=== PATIENT | male | born 1965 | race Caucasian/White ===

== ENCOUNTER 2017-10-30 05:45 | Day surgery (SDC) | payer MEDICARE, OTHER ==
[~2017-10-30] VITALS: Ht 188 cm; Wt 125.0 kg
[~2017-10-30 05:45] MED LIST: ACET120S PR; ACET325 PO; ACET500 PO; ALLO100 PO; ALLO300 PO; AMIO200 PO; AMIT10 PO; AMIT25 PO; ASPI325 PO; Alprazolam2 MG PO; BENADRYL25 MG PO; BISA10S PR; Bystolic10 MG PO; CALCAVITD PO; CHOL10002 PO; CVS DISPOSABLE399 ML PR; CYAN1000 PO; Calci-Chew500 MG; Ceftriaxone2 G1 IV; Cordarone200 MG PO; Cymbalta30 MG PO; DIAZ5 PO; DILT120 PO; DIPH50 PO; DOCU100 PO; DULO30 PO; ELIQUIS5 MG PO; FENT100TP TOP; FERR325 PO; FOLI1 PO; FURO20 PO; FURO40 PO; HYDACE5 PO; HYDMOR2 PO; IBUP800 PO; IRON159 MG PO; KINERET SC; LAVAP17G PO; LEVSOD100 PO; LEVSOD125 PO; LISI20 PO; LORA1 PO; MAGCHL64ER PO; METHOTREXA25 MG/1 M6 IM; METO25 PO; METO50 PO; METPRE4DP PO; METTREX2.5 PO; MITIGARE0.6 MG PO; Micro-K10 MEQ; Milk Of Ma400 MG/5 M PO; NARCAN4 MG; NEBI10 PO; NUCYNTA ER100 MG PO; NUCYNTA ER50 MG PO; NYST100TC; NYSTRITC TOP; Nephro-Vite RX1 EA PO; Nortriptyline H50 MG PO; OMEP20ER PO; OMEPRAZOLE MAGN20 MG PO; ONDA8 SL; OPANA ER40 MG PO; OPANA PO; OXYC10ER PO; OXYC30 PO; OXYC30ER PO; OXYM.05NI; OXYMORPHONE HCL40 MG PO; Oxycodone HCl20 M1 PO; PANT40 PO; POTCHL10ER PO; PRAV20 PO; PRED10 PO; PRED20 PO; PRED5 PO; PROB500 PO; Pravastatin Sod40 MG PO; Prednisone2.5 MG PO; Prednisone20 MG PO; Prilosec2.5 MG PO; Prinivil10 MG PO; SACC250C PO; SPIR25 PO; SULF500A PO; Synthroid175 MCG PO; VALIUM; Ventolin5 MG/1 ML INH; WARF5 PO; WARF6 PO; WARF7.5 PO; [UNRECOGNIZED DRUG - OTHER]
== END 2017-10-30 22:35 | disposition home or self-care (01) ==
LOC: MHTC 05:45
PROC: 5A2204Z Restoration of Cardiac Rhythm, Single (ICD-10-PCS; principal; 2017-10-30)
DX: I48.1 Persistent atrial fibrillation (principal); G47.30 Sleep apnea, unspecified; E05.90 Thyrotoxicosis, unspecified without thyrotoxic crisis or storm; F17.220 Nicotine dependence, chewing tobacco, uncomplicated; Z79.01 Long term (current) use of anticoagulants; K21.9 Gastro-esophageal reflux disease without esophagitis; F41.9 Anxiety disorder, unspecified
CPT/HCPCS: 92960; 93005; 93010; 99152; 99153; J2250; J2310; J3010; J7030

== ENCOUNTER 2017-11-27 06:57 | Day surgery (SDC) | payer MEDICARE, OTHER ==
[~2017-11-27] VITALS: Ht 188 cm; Wt 130.6 kg
[~2017-11-27 06:57] MED LIST changes: +DISO100ER PO; +DRON400T PO; +ELIQUIS5 M1 PO
== END 2017-11-27 22:42 | disposition home or self-care (01) ==
LOC: ORSCMMR 06:57 → ORD 08:00 → ORSCMMR 22:42
PROVIDERS: Internal Medicine Gastroenterology
PROC: 0DBN8ZX Excision of Sigmoid Colon, Via Natural or Artificial Opening Endoscopic, Diagnostic (ICD-10-PCS; principal; 2017-11-27 08:00)
DX: R19.5 Other fecal abnormalities (principal); K63.5 Polyp of colon; I48.0 Paroxysmal atrial fibrillation; E78.00 Pure hypercholesterolemia, unspecified; E66.9 Obesity, unspecified; Z68.37 Body mass index [BMI] 37.0-37.9, adult; Z79.01 Long term (current) use of anticoagulants; Z79.82 Long term (current) use of aspirin; Z79.899 Other long term (current) drug therapy
CPT/HCPCS: 88305; J7120

== ENCOUNTER 2017-12-31 09:00 | Day surgery (SDC) | payer MEDICARE, OTHER ==
[~2017-12-31] VITALS: Ht 182.9 cm; Wt 130.6 kg
[~2017-12-31 09:00] MED LIST changes: +ASPI325EC PO; +Allopurinol100 MG PO; +Hair, Skin & N1 EACH PO; +METHOTREXA25 MG/1 M7 INJ; +MIRALAX17 GM PO; +ONDA8 PO; +POTCHL20ER PO; +Pravachol40 MG PO; +Prilosec Otc20 MG PO; +TOPROL XL200 MG PO
== END 2017-12-31 11:03 | disposition home or self-care (01) ==
LOC: ORSCMMR 09:00 → ORD 10:30 → ORSCMMR 11:03
PROVIDERS: Internal Medicine Gastroenterology
PROC: 0DBN8ZX Excision of Sigmoid Colon, Via Natural or Artificial Opening Endoscopic, Diagnostic (ICD-10-PCS; principal; 2017-12-31 10:30)
DX: R19.5 Other fecal abnormalities (principal); K57.30 Diverticulosis of large intestine without perforation or abscess without bleeding; K63.5 Polyp of colon; I48.0 Paroxysmal atrial fibrillation; K21.9 Gastro-esophageal reflux disease without esophagitis; E78.00 Pure hypercholesterolemia, unspecified; Z79.01 Long term (current) use of anticoagulants; Z79.82 Long term (current) use of aspirin; Z79.899 Other long term (current) drug therapy
CPT/HCPCS: 88305; J2250; J7120

== ENCOUNTER 2023-02-21 02:10 | Day surgery (SDC) | payer MEDICARE, OTHER | END 2023-02-21 22:36 | disposition home or self-care (01) | LOC: WOUND 02:10 | DX: S90.932D Unspecified superficial injury of left great toe, subsequent encounter (principal); X58.XXXD Exposure to other specified factors, subsequent encounter; M1A.09X1 Idiopathic chronic gout, multiple sites, with tophus (tophi); I48.91 Unspecified atrial fibrillation; G47.30 Sleep apnea, unspecified; Z88.8 Allergy status to other drugs, medicaments and biological substances | CPT/HCPCS: G0463 ==

== ENCOUNTER 2023-02-26 01:57 | Day surgery (SDC) | payer MEDICARE, OTHER | END 2023-02-26 22:37 | disposition home or self-care (01) | LOC: WOUND 01:57 | DX: S90.422A Blister (nonthermal), left great toe, initial encounter (principal); X58.XXXD Exposure to other specified factors, subsequent encounter; M1A.09X1 Idiopathic chronic gout, multiple sites, with tophus (tophi); L97.521 Non-pressure chronic ulcer of other part of left foot limited to breakdown of skin | CPT/HCPCS: G0463 ==

== ENCOUNTER 2023-03-05 02:04 | Day surgery (SDC) | payer MEDICARE, OTHER | END 2023-03-05 22:53 | disposition home or self-care (01) | LOC: WOUND 02:04 | DX: L89.892 Pressure ulcer of other site, stage 2 (principal); S90.932D Unspecified superficial injury of left great toe, subsequent encounter; X58.XXXD Exposure to other specified factors, subsequent encounter; M1A.09X1 Idiopathic chronic gout, multiple sites, with tophus (tophi) | CPT/HCPCS: G0463 ==

== ENCOUNTER 2023-03-19 01:42 | Day surgery (SDC) | payer MEDICARE, OTHER | END 2023-03-19 22:51 | disposition home or self-care (01) | LOC: WOUND 01:42 | DX: L89.892 Pressure ulcer of other site, stage 2 (principal); S90.932D Unspecified superficial injury of left great toe, subsequent encounter; X58.XXXD Exposure to other specified factors, subsequent encounter; M1A.09X1 Idiopathic chronic gout, multiple sites, with tophus (tophi) | CPT/HCPCS: G0463 ==

== ENCOUNTER 2023-03-28 00:55 | Day surgery (SDC) | payer MEDICARE, OTHER | END 2023-03-28 22:58 | disposition home or self-care (01) | LOC: WOUND 00:55 | DX: L89.892 Pressure ulcer of other site, stage 2 (principal); M1A.09X1 Idiopathic chronic gout, multiple sites, with tophus (tophi) | CPT/HCPCS: G0463 ==

== ENCOUNTER 2023-04-09 01:46 | Day surgery (SDC) | payer MEDICARE, OTHER | END 2023-04-09 22:53 | disposition home or self-care (01) | LOC: WOUND 01:46 | DX: L89.892 Pressure ulcer of other site, stage 2 (principal); S90.932D Unspecified superficial injury of left great toe, subsequent encounter; M1A.09X1 Idiopathic chronic gout, multiple sites, with tophus (tophi) | CPT/HCPCS: G0463 ==

== ENCOUNTER 2023-04-23 00:16 | Day surgery (SDC) | payer MEDICARE, OTHER | END 2023-04-23 22:50 | disposition home or self-care (01) | LOC: WOUND 00:16 | DX: S90.932D Unspecified superficial injury of left great toe, subsequent encounter (principal); M1A.09X1 Idiopathic chronic gout, multiple sites, with tophus (tophi) | CPT/HCPCS: G0463 ==

== ENCOUNTER 2023-05-05 16:56 | Emergency (ER) | payer MEDICARE, OTHER ==
[~2023-05-05] VITALS: Ht 185.4 cm; Wt 136.1 kg
[2023-05-05 17:25] LABS: Base Excess Venous -1.8 mmol/L; Bicarbonate Venous 23.5 mmol/L (24.0-30.0); PCO2 Venous 32.3 mmHg (38-42); pH Blood Venous 7.45 (7.34-7.37)
[2023-05-05 17:48] LABS: BASOPHILS ABSOLUTE AUTO 0.04 K/mm3 (0.00-0.23); BASOPHILS PERCENT AUTO 1 % (0-2); EOSINOPHILS PERCENT AUTO 0 % (0-6); Hematocrit 36.4 % (37.0-53.0); Hemoglobin 12.6 g/dL (13.5-17.5); IMMATURE GRAN ABSOLUTE AUTO 0.02 K/mm3 (0.00-0.10); IMMATURE GRAN PERCENT AUTO 0 % (0-1); LYMPHOCYTES ABSOLUTE AUTO 1.45 K/mm3 (0.84-5.20); LYMPHOCYTES PERCENT AUTO 21 % (21-46); MONOCYTES PERCENT AUTO 7 % (4-13); Mean Corpuscular HGB 30.3 pg (26.0-34.0); Mean Corpuscular HGB Conc 34.6 g/dL (31.5-36.5); Mean Corpuscular Volume 88 fL (80-100); Mean Platelet Volume 9.6 fL (9.1-12.4); NEUTROPHILS ABSOLUTE AUTO 4.83 K/mm3 (1.96-9.15); NEUTROPHILS PERCENT AUTO 71 % (41-73); Platelet Count 184 K/mm3 (150-400); RDW Coefficient Variation 12.5 % (11.7-14.2); Red Blood Cell Count 4.16 M/mm3 (4.30-5.90); White Blood Cell Count 6.84 K/mm3 (4.00-11.30)
[2023-05-05 18:05] LABS: Albumin, Blood 3.9 g/dL (3.4-5.0); Bilirubin, Total 0.4 mg/dL (0.1-1.0); Bun/Creatinine Ratio 22.7 (12.0-20.0); Calcium, Blood 8.8 mg/dL (8.5-10.1); Creatinine, Blood 0.79 mg/dL (0.60-1.20); Globulin, Blood 3.8 g/dL (2.2-4.0); Potassium, Blood 3.5 mmol/L (3.5-5.5); Total Protein, Blood 7.7 g/dL (6.4-8.2)
[2023-05-05 18:19] LABS: Salicylate <1.7 mg/dL (2.8-20.0)
[2023-05-05 18:27] LABS: Acetaminophen, Random <2.0 ug/mL (10.0-30.0)
[2023-05-05 19:00] VITALS: BP 156/82
== END 2023-05-05 19:19 | disposition home or self-care (01) ==
LOC: ER 16:56
PROVIDERS: Emergency Medicine
DX: T40.2X1A Poisoning by other opioids, accidental (unintentional), initial encounter (principal); G89.29 Other chronic pain; Z88.8 Allergy status to other drugs, medicaments and biological substances; Z79.899 Other long term (current) drug therapy; Z79.82 Long term (current) use of aspirin; F17.220 Nicotine dependence, chewing tobacco, uncomplicated; M10.9 Gout, unspecified; E11.22 Type 2 diabetes mellitus with diabetic chronic kidney disease; N18.9 Chronic kidney disease, unspecified; E03.9 Hypothyroidism, unspecified; E78.5 Hyperlipidemia, unspecified; E66.9 Obesity, unspecified
CPT/HCPCS: 80053; 82803; 85025; 93005; 93010; 99284-25; A9270; G0480

== ENCOUNTER 2023-05-14 01:08 | Day surgery (SDC) | payer MEDICARE, OTHER | END 2023-05-15 22:55 | disposition home or self-care (01) | LOC: WOUND 01:08 | DX: L89.892 Pressure ulcer of other site, stage 2 (principal); S90.932D Unspecified superficial injury of left great toe, subsequent encounter; X58.XXXD Exposure to other specified factors, subsequent encounter; M1A.09X1 Idiopathic chronic gout, multiple sites, with tophus (tophi) | CPT/HCPCS: G0463 ==

== ENCOUNTER 2023-06-18 02:26 | Day surgery (SDC) | payer MEDICARE, OTHER | END 2023-06-18 22:54 | disposition home or self-care (01) | LOC: WOUND 02:26 | DX: L89.622 Pressure ulcer of left heel, stage 2 (principal); S90.932D Unspecified superficial injury of left great toe, subsequent encounter; M1A.09X1 Idiopathic chronic gout, multiple sites, with tophus (tophi) | CPT/HCPCS: G0463 ==

== ENCOUNTER 2023-07-02 04:26 | Day surgery (SDC) | payer MEDICARE, OTHER | END 2023-07-02 22:57 | disposition home or self-care (01) | LOC: WOUND 04:26 | DX: L89.622 Pressure ulcer of left heel, stage 2 (principal); S90.932D Unspecified superficial injury of left great toe, subsequent encounter; M1A.09X1 Idiopathic chronic gout, multiple sites, with tophus (tophi) | CPT/HCPCS: G0463 ==

== ENCOUNTER 2023-07-25 02:23 | Day surgery (SDC) | payer MEDICARE, OTHER | END 2023-07-25 22:40 | disposition home or self-care (01) | LOC: WOUND 02:23 | DX: L89.892 Pressure ulcer of other site, stage 2 (principal); S90.932D Unspecified superficial injury of left great toe, subsequent encounter; X58.XXXD Exposure to other specified factors, subsequent encounter; M1A.09X1 Idiopathic chronic gout, multiple sites, with tophus (tophi) | CPT/HCPCS: G0463 ==

== ENCOUNTER 2023-08-13 03:23 | Day surgery (SDC) | payer MEDICARE, OTHER | END 2023-08-13 22:51 | disposition home or self-care (01) | LOC: WOUND 03:23 | DX: S90.932D Unspecified superficial injury of left great toe, subsequent encounter (principal); M1A.09X1 Idiopathic chronic gout, multiple sites, with tophus (tophi); X58.XXXD Exposure to other specified factors, subsequent encounter | CPT/HCPCS: G0463 ==

== ENCOUNTER 2024-05-22 02:03 | Day surgery (SDC) | payer MEDICARE, OTHER ==
[2024-05-22] MEDS ORDERED: Lidocaine HCl 4% Cream 5 GM ONE (08:08)
== END 2024-05-22 23:00 | disposition home or self-care (01) ==
LOC: WOUND 02:03
DX: L97.412 Non-pressure chronic ulcer of right heel and midfoot with fat layer exposed (principal); L97.422 Non-pressure chronic ulcer of left heel and midfoot with fat layer exposed; M19.90 Unspecified osteoarthritis, unspecified site; M10.9 Gout, unspecified; Z79.899 Other long term (current) drug therapy; Z88.8 Allergy status to other drugs, medicaments and biological substances
CPT/HCPCS: A9270; G0463

== ENCOUNTER 2024-05-28 03:02 | Day surgery (SDC) | payer MEDICARE, OTHER ==
[2024-05-28] MEDS ORDERED: Lidocaine HCl 4% Cream 5 GM ONE (08:36)
== END 2024-05-28 23:00 | disposition home or self-care (01) ==
LOC: WOUND 03:02
DX: L97.412 Non-pressure chronic ulcer of right heel and midfoot with fat layer exposed (principal); L97.422 Non-pressure chronic ulcer of left heel and midfoot with fat layer exposed
CPT/HCPCS: A9270

== ENCOUNTER 2024-06-04 03:19 | Day surgery (SDC) | payer MEDICARE, OTHER ==
[2024-06-04] MEDS ORDERED: Lidocaine HCl 4% Cream 5 GM ONE (07:59)
== END 2024-06-04 23:00 | disposition home or self-care (01) ==
LOC: WOUND 03:19
DX: L97.512 Non-pressure chronic ulcer of other part of right foot with fat layer exposed (principal); L97.522 Non-pressure chronic ulcer of other part of left foot with fat layer exposed
CPT/HCPCS: A9270; G0463

== ENCOUNTER 2024-06-25 01:15 | Day surgery (SDC) | payer MEDICARE, OTHER ==
[2024-06-25] MEDS ORDERED: Lidocaine HCl 4% Cream 5 GM ONE (07:58)
== END 2024-06-25 23:00 | disposition home or self-care (01) ==
LOC: WOUND 01:15
DX: L97.512 Non-pressure chronic ulcer of other part of right foot with fat layer exposed (principal); L97.522 Non-pressure chronic ulcer of other part of left foot with fat layer exposed
CPT/HCPCS: A9270

== ENCOUNTER 2024-06-30 04:45 | Day surgery (SDC) | payer MEDICARE, OTHER ==
[2024-06-30] MEDS ORDERED: Lidocaine HCl 4% Cream 5 GM ONE (08:09)
== END 2024-06-30 23:50 | disposition home or self-care (01) ==
LOC: WOUND 04:45
DX: L97.422 Non-pressure chronic ulcer of left heel and midfoot with fat layer exposed (principal); L97.412 Non-pressure chronic ulcer of right heel and midfoot with fat layer exposed; M10.9 Gout, unspecified
CPT/HCPCS: A9270

== ENCOUNTER 2024-07-07 02:57 | Day surgery (SDC) | payer MEDICARE, OTHER ==
[2024-07-07] MEDS ORDERED: Lidocaine HCl 4% Cream 5 GM ONE (08:09)
== END 2024-07-07 23:00 | disposition home or self-care (01) ==
LOC: WOUND 02:57
DX: L97.422 Non-pressure chronic ulcer of left heel and midfoot with fat layer exposed (principal); L97.412 Non-pressure chronic ulcer of right heel and midfoot with fat layer exposed; G62.9 Polyneuropathy, unspecified; M10.9 Gout, unspecified; Z79.899 Other long term (current) drug therapy
CPT/HCPCS: A9270

== ENCOUNTER 2024-07-21 02:58 | Day surgery (SDC) | payer MEDICARE, OTHER ==
[2024-07-21] MEDS ORDERED: Lidocaine HCl 4% Cream 5 GM ONE (07:50)
== END 2024-07-21 23:00 | disposition home or self-care (01) ==
LOC: WOUND 02:58
DX: L97.412 Non-pressure chronic ulcer of right heel and midfoot with fat layer exposed (principal); L97.422 Non-pressure chronic ulcer of left heel and midfoot with fat layer exposed; M10.9 Gout, unspecified
CPT/HCPCS: A9270

== ENCOUNTER 2024-07-28 03:03 | Day surgery (SDC) | payer MEDICARE, OTHER ==
[2024-07-28] MEDS ORDERED: Lidocaine HCl 4% Cream 5 GM ONE (07:54)
== END 2024-07-28 23:00 | disposition home or self-care (01) ==
LOC: WOUND 03:03
DX: L97.412 Non-pressure chronic ulcer of right heel and midfoot with fat layer exposed (principal); L97.422 Non-pressure chronic ulcer of left heel and midfoot with fat layer exposed; M10.9 Gout, unspecified; Z79.899 Other long term (current) drug therapy; L97.512 Non-pressure chronic ulcer of other part of right foot with fat layer exposed; L97.522 Non-pressure chronic ulcer of other part of left foot with fat layer exposed; M20.12 Hallux valgus (acquired), left foot; M20.11 Hallux valgus (acquired), right foot; M24.675 Ankylosis, left foot; M24.674 Ankylosis, right foot; Z96.661 Presence of right artificial ankle joint; Z96.662 Presence of left artificial ankle joint; M19.172 Post-traumatic osteoarthritis, left ankle and foot
CPT/HCPCS: 73630; A6196; A9270; G0463

== ENCOUNTER 2024-08-04 04:16 | Day surgery (SDC) | payer MEDICARE, OTHER ==
[2024-08-04] MEDS ORDERED: Lidocaine HCl 4% Cream 5 GM ONE (07:59)
== END 2024-08-04 23:00 | disposition home or self-care (01) ==
LOC: WOUND 04:16
DX: L97.412 Non-pressure chronic ulcer of right heel and midfoot with fat layer exposed (principal); L97.422 Non-pressure chronic ulcer of left heel and midfoot with fat layer exposed
CPT/HCPCS: A6196; A9270

== ENCOUNTER 2024-08-06 06:08 | Day surgery (SDC) | payer MEDICARE, OTHER | END 2024-08-06 22:51 | disposition home or self-care (01) | LOC: WOUND 06:08 | DX: L97.422 Non-pressure chronic ulcer of left heel and midfoot with fat layer exposed (principal); L97.412 Non-pressure chronic ulcer of right heel and midfoot with fat layer exposed; M10.9 Gout, unspecified; Z79.899 Other long term (current) drug therapy ==

== ENCOUNTER 2024-08-08 07:17 | Day surgery (SDC) | payer MEDICARE, OTHER | END 2024-08-08 23:00 | disposition home or self-care (01) | LOC: WOUND 07:17 | DX: L97.412 Non-pressure chronic ulcer of right heel and midfoot with fat layer exposed (principal); L97.422 Non-pressure chronic ulcer of left heel and midfoot with fat layer exposed; G62.9 Polyneuropathy, unspecified; M10.9 Gout, unspecified ==

== ENCOUNTER 2024-08-11 04:12 | Day surgery (SDC) | payer MEDICARE, OTHER ==
[2024-08-11] MEDS ORDERED: Lidocaine HCl 4% Cream 5 GM ONE (13:01)
== END 2024-08-11 23:00 | disposition home or self-care (01) ==
LOC: WOUND 04:12
DX: L97.412 Non-pressure chronic ulcer of right heel and midfoot with fat layer exposed (principal); L97.422 Non-pressure chronic ulcer of left heel and midfoot with fat layer exposed; G62.9 Polyneuropathy, unspecified; M10.9 Gout, unspecified; Z79.899 Other long term (current) drug therapy
CPT/HCPCS: A9270

== ENCOUNTER 2024-08-18 06:10 | Day surgery (SDC) | payer MEDICARE, OTHER ==
[2024-08-18] MEDS ORDERED: Lidocaine HCl 4% Cream 5 GM ONE (08:09)
== END 2024-08-18 23:00 | disposition home or self-care (01) ==
LOC: WOUND 06:10
DX: L97.412 Non-pressure chronic ulcer of right heel and midfoot with fat layer exposed (principal); L97.422 Non-pressure chronic ulcer of left heel and midfoot with fat layer exposed
CPT/HCPCS: A9270

== ENCOUNTER 2024-08-25 06:07 | Day surgery (SDC) | payer MEDICARE, OTHER ==
[2024-08-25] MEDS ORDERED: Lidocaine HCl 4% Cream 5 GM ONE (08:05)
== END 2024-08-25 23:00 | disposition home or self-care (01) ==
LOC: WOUND 06:07
DX: L97.422 Non-pressure chronic ulcer of left heel and midfoot with fat layer exposed (principal); L97.412 Non-pressure chronic ulcer of right heel and midfoot with fat layer exposed; G62.9 Polyneuropathy, unspecified; M10.9 Gout, unspecified; Z79.899 Other long term (current) drug therapy
CPT/HCPCS: A9270

== ENCOUNTER 2024-09-01 00:56 | Day surgery (SDC) | payer MEDICARE, OTHER ==
[2024-09-01] MEDS ORDERED: Lidocaine HCl 4% Cream 5 GM ONE (09:16)
== END 2024-09-01 23:00 | disposition home or self-care (01) ==
LOC: WOUND 00:56
DX: L97.412 Non-pressure chronic ulcer of right heel and midfoot with fat layer exposed (principal); L97.422 Non-pressure chronic ulcer of left heel and midfoot with fat layer exposed
CPT/HCPCS: A9270

== ENCOUNTER 2024-09-15 00:14 | Day surgery (SDC) | payer MEDICARE, OTHER ==
[2024-09-15] MEDS ORDERED: Lidocaine HCl 4% Cream 5 GM ONE (08:37)
== END 2024-09-15 23:00 | disposition home or self-care (01) ==
LOC: WOUND 00:14
DX: L97.412 Non-pressure chronic ulcer of right heel and midfoot with fat layer exposed (principal); L97.422 Non-pressure chronic ulcer of left heel and midfoot with fat layer exposed; G62.9 Polyneuropathy, unspecified; M10.9 Gout, unspecified; Z79.899 Other long term (current) drug therapy
CPT/HCPCS: A9270

== ENCOUNTER 2024-09-22 01:16 | Day surgery (SDC) | payer MEDICARE, OTHER ==
[2024-09-22] MEDS ORDERED: Lidocaine HCl 4% Cream 5 GM ONE (08:08)
== END 2024-09-22 23:00 | disposition home or self-care (01) ==
LOC: WOUND 01:16
DX: L97.422 Non-pressure chronic ulcer of left heel and midfoot with fat layer exposed (principal); L97.412 Non-pressure chronic ulcer of right heel and midfoot with fat layer exposed; G62.9 Polyneuropathy, unspecified; M10.9 Gout, unspecified; Z79.899 Other long term (current) drug therapy
CPT/HCPCS: A9270

== ENCOUNTER 2024-09-29 02:15 | Day surgery (SDC) | payer MEDICARE, OTHER | END 2024-09-29 23:00 | disposition home or self-care (01) | LOC: WOUND 02:15 | DX: L97.412 Non-pressure chronic ulcer of right heel and midfoot with fat layer exposed (principal); L97.422 Non-pressure chronic ulcer of left heel and midfoot with fat layer exposed ==

== ENCOUNTER 2024-10-06 01:41 | Day surgery (SDC) | payer MEDICARE, OTHER ==
[2024-10-06] MEDS ORDERED: Lidocaine HCl 4% Cream 5 GM ONE (08:15)
== END 2024-10-06 23:18 | disposition home or self-care (01) ==
LOC: WOUND 01:41
DX: L97.412 Non-pressure chronic ulcer of right heel and midfoot with fat layer exposed (principal); L97.422 Non-pressure chronic ulcer of left heel and midfoot with fat layer exposed
CPT/HCPCS: A9270

== ENCOUNTER 2024-10-13 02:19 | Day surgery (SDC) | payer MEDICARE, OTHER ==
[2024-10-13] MEDS ORDERED: Lidocaine HCl 4% Cream 5 GM ONE (08:12)
== END 2024-10-13 22:48 | disposition home or self-care (01) ==
LOC: WOUND 02:19
DX: L97.422 Non-pressure chronic ulcer of left heel and midfoot with fat layer exposed (principal); L97.412 Non-pressure chronic ulcer of right heel and midfoot with fat layer exposed
CPT/HCPCS: A6196; A9270

== ENCOUNTER 2024-10-20 00:23 | Day surgery (SDC) | payer MEDICARE, OTHER ==
[2024-10-20] MEDS ORDERED: Lidocaine HCl 4% Cream 5 GM ONE (08:04)
== END 2024-10-20 23:33 | disposition home or self-care (01) ==
LOC: WOUND 00:23
DX: L97.512 Non-pressure chronic ulcer of other part of right foot with fat layer exposed (principal); L97.522 Non-pressure chronic ulcer of other part of left foot with fat layer exposed
CPT/HCPCS: A6196; A9270

== ENCOUNTER 2024-10-27 01:11 | Day surgery (SDC) | payer MEDICARE, OTHER ==
[2024-10-27] MEDS ORDERED: Lidocaine HCl 4% Cream 5 GM ONE (07:56)
== END 2024-10-27 23:00 | disposition home or self-care (01) ==
LOC: WOUND 01:11
DX: L97.412 Non-pressure chronic ulcer of right heel and midfoot with fat layer exposed (principal); L97.422 Non-pressure chronic ulcer of left heel and midfoot with fat layer exposed
CPT/HCPCS: A6196; A9270

== ENCOUNTER 2024-11-03 01:32 | Day surgery (SDC) | payer MEDICARE, OTHER ==
[2024-11-03] MEDS ORDERED: Lidocaine HCl 4% Cream 5 GM ONE (08:08)
== END 2024-11-03 23:00 | disposition home or self-care (01) ==
LOC: WOUND 01:32
DX: L97.412 Non-pressure chronic ulcer of right heel and midfoot with fat layer exposed (principal); L97.422 Non-pressure chronic ulcer of left heel and midfoot with fat layer exposed
CPT/HCPCS: A6196; A9270; G0463

== ENCOUNTER → 2024-11-10 | Day surgery (SDC) | payer MEDICARE, OTHER | LOC: WOUND 13:17 | DX: L97.412 Non-pressure chronic ulcer of right heel and midfoot with fat layer exposed (principal); L97.422 Non-pressure chronic ulcer of left heel and midfoot with fat layer exposed; M10.9 Gout, unspecified | CPT/HCPCS: A6196; G0463 ==

== ENCOUNTER 2024-11-17 08:14 | Day surgery (SDC) | payer MEDICARE, OTHER | END 2024-11-17 23:00 | disposition home or self-care (01) | LOC: WOUND 08:14 | DX: L97.412 Non-pressure chronic ulcer of right heel and midfoot with fat layer exposed (principal); L97.422 Non-pressure chronic ulcer of left heel and midfoot with fat layer exposed | CPT/HCPCS: A6196; G0463 ==

== ENCOUNTER 2024-11-24 05:44 | Day surgery (SDC) | payer MEDICARE, OTHER ==
[2024-11-24] MEDS ORDERED: Lidocaine HCl 4% Cream 5 GM ONE (07:53)
== END 2024-11-24 23:00 | disposition home or self-care (01) ==
LOC: WOUND 05:44
DX: L97.412 Non-pressure chronic ulcer of right heel and midfoot with fat layer exposed (principal); L97.422 Non-pressure chronic ulcer of left heel and midfoot with fat layer exposed
CPT/HCPCS: A6196; A9270

== ENCOUNTER 2024-12-01 03:27 | Day surgery (SDC) | payer MEDICARE, OTHER ==
[2024-12-01] MEDS ORDERED: Lidocaine HCl 4% Cream 5 GM ONE (07:48)
== END 2024-12-01 23:10 | disposition home or self-care (01) ==
LOC: WOUND 03:27
DX: L97.412 Non-pressure chronic ulcer of right heel and midfoot with fat layer exposed (principal); L97.422 Non-pressure chronic ulcer of left heel and midfoot with fat layer exposed
CPT/HCPCS: A6196; A9270; G0463

== ENCOUNTER 2024-12-08 00:56 | Day surgery (SDC) | payer MEDICARE, OTHER ==
[2024-12-08] MEDS ORDERED: Lidocaine HCl 4% Cream 5 GM ONE (07:55)
== END 2024-12-08 23:15 | disposition home or self-care (01) ==
LOC: WOUND 00:56
DX: L97.412 Non-pressure chronic ulcer of right heel and midfoot with fat layer exposed (principal); L97.422 Non-pressure chronic ulcer of left heel and midfoot with fat layer exposed
CPT/HCPCS: A6196; A9270

== ENCOUNTER 2024-12-29 03:14 | Day surgery (SDC) | payer MEDICARE, OTHER ==
[2024-12-29] MEDS ORDERED: Lidocaine HCl 4% Cream 5 GM ONE (07:40)
== END 2024-12-29 23:42 | disposition home or self-care (01) ==
LOC: WOUND 03:14
DX: L97.512 Non-pressure chronic ulcer of other part of right foot with fat layer exposed (principal); L97.522 Non-pressure chronic ulcer of other part of left foot with fat layer exposed
CPT/HCPCS: A9270; G0463

== ENCOUNTER 2025-01-19 08:00 | Day surgery (SDC) | payer MEDICARE, OTHER | END 2025-01-19 23:00 | disposition home or self-care (01) | LOC: WOUND 08:00 | DX: L97.412 Non-pressure chronic ulcer of right heel and midfoot with fat layer exposed (principal); L97.422 Non-pressure chronic ulcer of left heel and midfoot with fat layer exposed; Z88.8 Allergy status to other drugs, medicaments and biological substances ==

== ENCOUNTER 2025-02-02 00:31 | Day surgery (SDC) | payer MEDICARE, OTHER | END 2025-02-02 23:00 | disposition home or self-care (01) | LOC: WOUND 00:31 | DX: L97.412 Non-pressure chronic ulcer of right heel and midfoot with fat layer exposed (principal); L97.422 Non-pressure chronic ulcer of left heel and midfoot with fat layer exposed | CPT/HCPCS: G0463 ==

== ENCOUNTER 2025-02-16 00:38 | Day surgery (SDC) | payer MEDICARE, OTHER ==
[2025-02-16] MEDS ORDERED: Lidocaine HCl 4% Cream 5 GM ONE (07:57)
== END 2025-02-16 23:00 | disposition home or self-care (01) ==
LOC: WOUND 00:38
DX: L97.412 Non-pressure chronic ulcer of right heel and midfoot with fat layer exposed (principal); L97.422 Non-pressure chronic ulcer of left heel and midfoot with fat layer exposed
CPT/HCPCS: A6196; A9270

== ENCOUNTER 2025-03-02 00:27 | Day surgery (SDC) | payer MEDICARE, OTHER ==
[2025-03-02] MEDS ORDERED: Lidocaine HCl 4% Cream 5 GM ONE (07:44)
== END 2025-03-02 23:00 | disposition home or self-care (01) ==
LOC: WOUND 00:27
DX: L97.422 Non-pressure chronic ulcer of left heel and midfoot with fat layer exposed (principal); L97.412 Non-pressure chronic ulcer of right heel and midfoot with fat layer exposed; G62.9 Polyneuropathy, unspecified; M10.9 Gout, unspecified; Z79.899 Other long term (current) drug therapy
CPT/HCPCS: A6196; A9270

== ENCOUNTER 2025-03-16 00:20 | Day surgery (SDC) | payer MEDICARE, OTHER ==
[2025-03-16] MEDS ORDERED: Lidocaine HCl 4% Cream 5 GM ONE (08:01)
== END 2025-03-16 23:18 | disposition home or self-care (01) ==
LOC: WOUND 00:20
DX: L97.522 Non-pressure chronic ulcer of other part of left foot with fat layer exposed (principal); L97.512 Non-pressure chronic ulcer of other part of right foot with fat layer exposed; G62.9 Polyneuropathy, unspecified; M10.9 Gout, unspecified; Z79.899 Other long term (current) drug therapy
CPT/HCPCS: A6196; A9270

== ENCOUNTER 2025-03-30 01:00 | Day surgery (SDC) | payer MEDICARE, OTHER ==
[2025-03-30] MEDS ORDERED: Lidocaine HCl 4% Cream 5 GM ONE (08:02)
== END 2025-03-30 23:00 | disposition home or self-care (01) ==
LOC: WOUND 01:00
DX: L97.412 Non-pressure chronic ulcer of right heel and midfoot with fat layer exposed (principal); L97.422 Non-pressure chronic ulcer of left heel and midfoot with fat layer exposed; M10.9 Gout, unspecified
CPT/HCPCS: A6196; A9270

== ENCOUNTER 2025-04-06 02:53 | Day surgery (SDC) | payer MEDICARE, OTHER ==
[2025-04-06] MEDS ORDERED: Lidocaine HCl 4% Cream 5 GM ONE (07:43)
== END 2025-04-06 23:00 | disposition home or self-care (01) ==
LOC: WOUND 02:53
DX: L97.412 Non-pressure chronic ulcer of right heel and midfoot with fat layer exposed (principal); L97.422 Non-pressure chronic ulcer of left heel and midfoot with fat layer exposed; M1A.09X1 Idiopathic chronic gout, multiple sites, with tophus (tophi); Z79.899 Other long term (current) drug therapy
CPT/HCPCS: 36415; 80053; 80061; 83036; 84443; 84550; 85025; A6196; A9270

== ENCOUNTER 2025-04-12 15:06 | Inpatient (IN) | payer MEDICARE, OTHER ==
[~2025-04-12] VITALS: Ht 185.4 cm; Wt 142.3 kg
[2025-04-12] MEDS ORDERED: NS 1,000 ML IV SCH ×2 (15:40→19:10)
[2025-04-12] MEDS ORDERED: Ketorolac Tromethamine 15mg Vial IV ONE (16:10)
[2025-04-12 16:14] LABS: BASOPHILS ABSOLUTE AUTO 0.06 K/mm3 (0.00-0.23); BASOPHILS PERCENT AUTO 1 % (0-2); EOSINOPHILS ABSOLUTE AUTO 0.09 K/mm3 (0.00-0.68); EOSINOPHILS PERCENT AUTO 1 % (0-6); Hematocrit 37.1 % (37.0-53.0); Hemoglobin 12.8 g/dL (13.5-17.5); IMMATURE GRAN ABSOLUTE AUTO 0.07 K/mm3 (0.00-0.10); IMMATURE GRAN PERCENT AUTO 1 % (0-1); LYMPHOCYTES ABSOLUTE AUTO 0.44 K/mm3 (0.84-5.20); LYMPHOCYTES PERCENT AUTO 4 % (21-46); MONOCYTES ABSOLUTE AUTO 0.82 K/mm3 (0.16-1.47); MONOCYTES PERCENT AUTO 7 % (4-13); Mean Corpuscular HGB Conc 34.5 g/dL (31.5-36.5); Mean Corpuscular Volume 92 fL (80-100); NEUTROPHILS ABSOLUTE AUTO 10.08 K/mm3 (1.96-9.15); NEUTROPHILS PERCENT AUTO 87 % (41-73); NRBC ABSOLUTE 0.00 K/mm3 (0.00-0.02); NRBC Auto 0.0 /100 WBC (0.0-0.2); Platelet Count 194 K/mm3 (150-400); RDW Coefficient Variation 12.0 % (11.7-14.2); RDW Standard Deviation 40.3 fL (35.1-46.3)
[2025-04-12 17:18] LABS: Influenza A, PCR NEGATIVE (NEGATIVE); Influenza B, PCR NEGATIVE (NEGATIVE); Resp Syncytial Virus, PCR NEGATIVE (NEGATIVE); SARS-Cov-2 (COVID-19) PCR, MMC NEGATIVE (NEGATIVE)
[2025-04-12 18:05] LABS: Alanine Aminotransfer (ALT/SGP 36.0 U/L (12-78); Albumin, Blood 2.9 g/dL (3.4-5.0); Albumin/Globulin Ratio 0.6 (0.8-1.8); Anion Gap 8.0 mmol/L (3-11); Aspartate Aminotrans (AST/SGOT 32.0 U/L (12-37); Bilirubin, Total 0.7 mg/dL (0.1-1.0); Blood Urea Nitrogen 11.0 mg/dL (8-24); CO2, Blood 26.0 mmol/L (21-32); Calcium, Blood 9.1 mg/dL (8.5-10.1); Chloride, Blood 97.0 mmol/L (98-108); Creatinine, Blood 0.84 mg/dL (0.60-1.20); Globulin, Blood 4.8 g/dL (2.2-4.0); Glucose, Blood 120.0 mg/dL (70-99); Potassium, Blood 4.2 mmol/L (3.5-5.5); Sodium, Blood 127.0 mmol/L (136-145); Total Protein, Blood 7.7 g/dL (6.4-8.2)
[2025-04-12] MEDS ORDERED: CefTRIAXone Sodium 2,000 MG in NS 100 ML IV ONE (18:10)
[2025-04-12] MEDS ORDERED: Ondansetron HCl 2 MG / ML 2ML Vial IV PRN (18:55)
[2025-04-12] MEDS ORDERED: FLU VACC TS2025-26(6MOS UP)/PF 45 MCG/0.5 ML SYRINGE IM SCH (18:55)
[2025-04-12] MEDS ORDERED: FentaNYL Citrate 50 MCG/ML 2 ML Injection IV PRN (18:55)
[2025-04-12] MEDS ORDERED: Clindamycin 900mg in D5W 50ML 50 ML IV SCH (19:00)
[2025-04-12] MEDS ORDERED: EUTHYROX125 MCG PO (20:34)
[2025-04-12 20:45] VITALS: BP 164/73
[2025-04-12] MEDS ORDERED: Lactobacil 2-S.Thermo-Bifido 1 1 Cap PO SCH (21:00)
--- NOTE | 2025-04-12 21:00 | NUR ---
Assumed Care Received report from KVNG Brody-RN. Arrived from ER via [facility] w/ . AOx4. Self transferred to bed. Following directions well. C/O generalized chronic pain and acute pain to LLE. Reviewed home meds, all were reconciled. Tele: SB 36-60's, asymptomatic. Assessed wounds to dorsal aspect of bilateral feet, both dressings changed, wound photographed, and informed Dr. Taylor. Luz Guadalupe, WAYNE is also aware of wound when patient was admitted. Areas of erythema marked. Yeast infection noted in the fold between toes and dorsal feet. Consult called to Christopher Jiang/Iman on Office's answering machine and faxed facesheet + consult order to office's fax number. NPO status to start at 0001, patient is aware. NS @ 100. Patient declined SENIOR TECHNICAL PROGRAM MANAGER monitoring and signed declination form w/ RT. SBA. Patient settled to room. Call light in reach. Bed in lowest position. Patient reports taking 10-20mg oxycodone TID as needed for pain, last filled on 04/08 per Med Claim History. Also clarified w/ patient he takes miralax prn bid, colace and senna both on a prn basis,
[2025-04-12] MEDS ORDERED: KINERET100 MG/0.6 SC (22:09)
[2025-04-12] MEDS ORDERED: MIRALAX17 GM PO (23:45)
[2025-04-12 23:54] VITALS: BP 137/84
[2025-04-13] MEDS ORDERED: Polyethylene Glycol 3350 17 gm PO PRN (01:20)
--- NOTE | 2025-04-13 02:00 | NUR ---
Physician Contacted Dr. Jerrod Taylor called RE asymptomatic bradycardia HR 30s. Patient does take 100mg metoprolol succinate daily at home, but some home meds have not been resumed including the metoprolol succinate. Order to continue to monitor. Also received order for 10mg PO oxycodone q8h prn for pain, 17g miralax PO BID PRN, changed senna to daily prn, added 100mg colace PO daily prn, basic wound care order, change levothyroxine to home dose of 0.175mg PO before breakfast, nystatin cream to be applied to affected area daily. Orders have been entered.
[2025-04-13 04:09] VITALS: BP 166/78
--- NOTE | 2025-04-13 04:18 | NUR ---
Shift Summary AOx4. RA. Tele: SB/SR. Continent to bathroom. Afebrile since arrival to unit. Sleeping well through the night. Does snore even with head of bed elevated >45 degrees. NS @ 100.
[2025-04-13 05:16] LABS: BASOPHILS ABSOLUTE AUTO 0.03 K/mm3 (0.00-0.23); BASOPHILS PERCENT AUTO 0 % (0-2); EOSINOPHILS ABSOLUTE AUTO 0.00 K/mm3 (0.00-0.68); EOSINOPHILS PERCENT AUTO 0 % (0-6); Hematocrit 34.3 % (37.0-53.0); Hemoglobin 11.5 g/dL (13.5-17.5); IMMATURE GRAN ABSOLUTE AUTO 0.02 K/mm3 (0.00-0.10); IMMATURE GRAN PERCENT AUTO 0 % (0-1); LYMPHOCYTES ABSOLUTE AUTO 0.81 K/mm3 (0.84-5.20); LYMPHOCYTES PERCENT AUTO 10 % (21-46); MONOCYTES ABSOLUTE AUTO 0.77 K/mm3 (0.16-1.47); MONOCYTES PERCENT AUTO 10 % (4-13); Mean Corpuscular HGB Conc 33.5 g/dL (31.5-36.5); Mean Corpuscular Volume 95 fL (80-100); NEUTROPHILS ABSOLUTE AUTO 6.47 K/mm3 (1.96-9.15); NEUTROPHILS PERCENT AUTO 80 % (41-73); NRBC ABSOLUTE 0.00 K/mm3 (0.00-0.02); NRBC Auto 0.0 /100 WBC (0.0-0.2); Platelet Count 192 K/mm3 (150-400); RDW Coefficient Variation 12.2 % (11.7-14.2); RDW Standard Deviation 42.5 fL (35.1-46.3)
[2025-04-13 05:44] LABS: Alanine Aminotransfer (ALT/SGP 33.0 U/L (12-78); Albumin, Blood 2.7 g/dL (3.4-5.0); Albumin/Globulin Ratio 0.6 (0.8-1.8); Anion Gap 7.0 mmol/L (3-11); Aspartate Aminotrans (AST/SGOT 29.0 U/L (12-37); Bilirubin, Total 0.5 mg/dL (0.1-1.0); Blood Urea Nitrogen 14.0 mg/dL (8-24); CO2, Blood 28.0 mmol/L (21-32); Calcium, Blood 8.7 mg/dL (8.5-10.1); Chloride, Blood 99.0 mmol/L (98-108); Creatinine, Blood 0.71 mg/dL (0.60-1.20); Globulin, Blood 4.8 g/dL (2.2-4.0); Glucose, Blood 99.0 mg/dL (70-99); Potassium, Blood 4.3 mmol/L (3.5-5.5); Sodium, Blood 130.0 mmol/L (136-145); Total Protein, Blood 7.5 g/dL (6.4-8.2)
[2025-04-13] MEDS ORDERED: Levothyroxine Sodium 0.175 MG TAB PO SCH (06:00)
[2025-04-13 07:12] VITALS: BP 142/83
[2025-04-13] MEDS ORDERED: Enoxaparin 40 MG/0.4 ML SYR SC SCH (09:00)
[2025-04-13 11:41] VITALS: BP 143/82
--- NOTE | 2025-04-13 15:47 | NUR ---
CALLED DR POWELL TO CONFIRM HE RECEIVED CONSULT REQUEST TO EVAL PT'S FEET. HE STATES HE WILL BE IN AFTERNOON AFTER CLINIC IN THE EVENING. SAID TO GO AHEAD AND LET PT HAVE A REGULAR DIET.
[2025-04-13 16:22] VITALS: BP 161/91
[2025-04-13 19:22] VITALS: BP 159/89
--- NOTE | 2025-04-13 19:52 | NUR ---
SUMMARY- PT A/O X4, INDEPENDANT IN ROOM WITH WALKER TO BATHROOM AND USES URINAL AT BEDSIDE. MEDICATED WITH OXYCODONE 10MG Q8 WAS NOT COVERING PT'S PAIN. CALL TO DR KAY TO INCREASE FREQ AND DOSE WITH BETTER PAIN CONTROL. FENT ADMIN ONCE FOR DRESSING CHANGE AT [address] POWELL TOOK DRESSING DOWN AND EVALUATED WOUNDS. REDRESSED WITH 1/2" IODOFORM GAUZE, ABD, KERLEX. PLAN IS FOR SURGERY 04/14 PM. PT MAY HAVE REG DIET UNTIL MN- THAN CLEAR LIQ THROUGH BREAKFAST AND THAN NPO. REPORTED TO NOC THOMAS RAYMUNDO
[2025-04-14] VITALS (14 sets, daily range): BP systolic 137–213; BP diastolic 57–88
--- NOTE | 2025-04-14 05:42 | NUR ---
SHIFT SUMMARY A&OX4. ABLE TO MAKE NEEDS KNOWN. SIGNIFICANT EPISODES OF PAIN IN BLE. PT MEDICATED PER EMAR AND FEET ELEVATED FOR COMFORT. PT TOLERATED WELL AND CALLED APPROPRIATELY. PT USED URINAL PRN. PT HAS BEEN ON CLEAR LIQUID DIET SINCE 0000 PER ORDERS. PT CURRENTLY RESTING IN BED WITH HOB ELEVATED, RAILS X2 AND CALL LIGHT WITHIN REACH.
[2025-04-14] MEDS ORDERED: Bupivacaine 0.5% HCl 5 MG/ML 30MLVIAL ONE (09:42)
--- NOTE | 2025-04-14 10:57 | NUR ---
low hr dr milton called r/t pt hr 43-47 bpm. ekg ordered and completed. Care ongoing.
--- NOTE | 2025-04-14 10:58 | NUR ---
ROSA NEELY CALLED KELLIE GUZMAN IN DAY SURGERY TO NOTIFY OF PT LOW HR. CARE ONGOING.
--- NOTE | 2025-04-14 11:38 | NUR ---
SURGERY PT TRANSFERED TO [facility] WITH SPOJENNIFER IN ATTENDANCE. CAR EONGOING.
[2025-04-14] MEDS ORDERED: FentaNYL Citrate 50 MCG/ML 2 ML Injection ONE ×2 (11:56→12:20)
[2025-04-14] MEDS ORDERED: Midazolam HCl 1MG / ML 2ML Vial ONE (11:56)
--- NOTE | 2025-04-14 11:56 | NUR ---
Patient up to Ambulate independently. Gait steady. History, Chart, Medications and Allergies reviewed before start of procedure. Lungs clear T/O to Auscultation. Patient confirms NPO status and agrees with scheduled surgery. Pre-Op teaching done. Pt verbalizes understanding.
[2025-04-14] MEDS ORDERED: Albuterol 2.5 MG/3 ML VIAL INH PRN (12:10)
[2025-04-14] MEDS ORDERED: FentaNYL Citrate 50 MCG/ML 2 ML Injection IV PRN ×2 (12:15)
[2025-04-14] MEDS ORDERED: Prochlorperazine Edisylate 10 mg Vial IV PRN (12:15)
[2025-04-14] MEDS ORDERED: Ondansetron HCl 2 MG / ML 2ML Vial IV PRN (12:15)
[2025-04-14] MEDS ORDERED: HydrALAZINE HCl 20 MG / ML 1ML Vial IV PRN (12:15)
[2025-04-14] MEDS ORDERED: HYDROmorphone HCl/Pf 1MG SYR IV PRN ×3 (12:15→15:35)
[2025-04-14] MEDS ORDERED: HydrALAZINE HCl 20 MG / ML 1ML Vial ONE (12:26)
--- NOTE | 2025-04-14 14:25 | NUR ---
POST OP PT ARRIVED VIA GURNEY. BED SIDE REPORT FROM PACU. PT ABLE TO MOVE SELF TO BED. PT IMMEDIATELY REQUESTED PAIN MEDICATION. HE HAD DENIED NEED IN PACU. MEDCIATED WITH FENTAYL AND ORAL OXYCODONE. LEFT FOOT DRESSING CD&I. LEFT FOOT ELEVATED ON PILLOW. PT INSTRUCTED ON 50% BWEIGHT BEARING. FWW AVAILABLE TO HIM. POST OP SHOE REQUESTED FROM [facility]. AT BEDSIDE. CARE ONGOING.
--- NOTE | 2025-04-14 15:01 | NUR ---
POST OP VITAL SIGSN PT REFUSED ADDITIONAL POST OP VITAL SIGSN. CARE ONGOING.
--- NOTE | 2025-04-14 15:37 | NUR ---
PAIN MEDCIATED PT FOR PAIN IMMEDIATELY UPON ARRIVAL FROM PACU. PT STATED HIS LEFT FOOT PAIN IS GETTING WORSE. PT DOESN'T FEEL FENTANYL IS ADDRESSING HIS PAIN WELL ENOUGH. HAD TALKED WITH DR ROSALES PRIOR TO SURGERY ABOUT PAIN PLAN. CALLED DR ROSALES AND RECEIVED AN ORDER FOR DILAUDID. CARE ON GOING.
--- NOTE | 2025-04-14 15:56 | NUR ---
LEFT FOOT DRESSING LEFT FOOT ELEVATED ON PILLOW. DRESSING CD&I. cARE ONGOING.
--- NOTE | 2025-04-14 18:00 | NUR ---
NOTE PT LAERT. SEE NOTES. DILAUDID 1MG GIVEN FOR PAIN LEFT FOOT. PT EXPRESSED SOME RELIEF. SENSCE OF HUMOUR IS BETTER. VOIDING PER URINAL. AT BEDSIDE. IVF INFUSINF. CARE ON GOING.
[2025-04-14] MEDS ORDERED: Enoxaparin 40 MG/0.4 ML SYR SC SCH (21:00)
[2025-04-15 03:40] VITALS: BP 164/92
[2025-04-15 05:46] LABS: BASOPHILS ABSOLUTE AUTO 0.03 K/mm3 (0.00-0.23); BASOPHILS PERCENT AUTO 0 % (0-2); EOSINOPHILS ABSOLUTE AUTO 0.00 K/mm3 (0.00-0.68); EOSINOPHILS PERCENT AUTO 0 % (0-6); Hematocrit 34.4 % (37.0-53.0); Hemoglobin 11.7 g/dL (13.5-17.5); IMMATURE GRAN ABSOLUTE AUTO 0.05 K/mm3 (0.00-0.10); IMMATURE GRAN PERCENT AUTO 1 % (0-1); LYMPHOCYTES ABSOLUTE AUTO 1.55 K/mm3 (0.84-5.20); LYMPHOCYTES PERCENT AUTO 19 % (21-46); MONOCYTES ABSOLUTE AUTO 1.24 K/mm3 (0.16-1.47); MONOCYTES PERCENT AUTO 15 % (4-13); Mean Corpuscular HGB Conc 34.0 g/dL (31.5-36.5); Mean Corpuscular Volume 93 fL (80-100); NEUTROPHILS ABSOLUTE AUTO 5.44 K/mm3 (1.96-9.15); NEUTROPHILS PERCENT AUTO 65 % (41-73); NRBC ABSOLUTE 0.00 K/mm3 (0.00-0.02); NRBC Auto 0.0 /100 WBC (0.0-0.2); Platelet Count 224 K/mm3 (150-400); RDW Coefficient Variation 12.6 % (11.7-14.2); RDW Standard Deviation 42.7 fL (35.1-46.3)
[2025-04-15 06:08] LABS: C-REACTIVE PROTEIN, EXT RANGE 8.81 mg/dL (0.000-0.300); Magnesium, Blood 2.2 mg/dL (1.6-2.4)
[2025-04-15 06:09] LABS: Alanine Aminotransfer (ALT/SGP 41.0 U/L (12-78); Albumin, Blood 2.5 g/dL (3.4-5.0); Albumin/Globulin Ratio 0.5 (0.8-1.8); Anion Gap 7.0 mmol/L (3-11); Aspartate Aminotrans (AST/SGOT 36.0 U/L (12-37); Bilirubin, Total 0.4 mg/dL (0.1-1.0); Blood Urea Nitrogen 8.0 mg/dL (8-24); CO2, Blood 28.0 mmol/L (21-32); Calcium, Blood 9.0 mg/dL (8.5-10.1); Chloride, Blood 102.0 mmol/L (98-108); Creatinine, Blood 0.69 mg/dL (0.60-1.20); Globulin, Blood 4.9 g/dL (2.2-4.0); Glucose, Blood 120.0 mg/dL (70-99); Phosphorus, Blood 4.5 mg/dL (2.5-4.9); Potassium, Blood 3.8 mmol/L (3.5-5.5); Sodium, Blood 133.0 mmol/L (136-145); Total Protein, Blood 7.4 g/dL (6.4-8.2)
[2025-04-15 07:50] VITALS: BP 155/84
[2025-04-15 11:52] VITALS: BP 208/101
[2025-04-15 15:12] VITALS: BP 159/78
--- NOTE | 2025-04-15 18:11 | NUR ---
WOUND CARE RIGHT FOOT-WOUND CLEANED WITH WOUND ICU RN. PATTED DRY. PACJED WITH CALCIUM ALGINATE. COVERED WITH SMALL MAXSORB AND WRAPPED WITH KERLEX. PLACED STOCKINETTE OVER THE DRESSING FOR RETENTION. LEFT FOOT-DR POWELL UNDRESSED. CLEANED TOP FOOT SUTURE LINE WITH BETADINE AND APPLIED A PIECE OF VASALINE GAUZE, TO THE DORSUM OF HIS FOOT LEFT PACKING IN AND APPLIED A MAX SOB. WRAPPED WITH KERLEX X2 AND WRAPPED OVER WITH AN RENA WRAP. P[T TOELRATED WELL AND EXPRESSED APPRECIATION. CARE ONGOING.
--- NOTE | 2025-04-15 18:12 | NUR ---
SHIFT SUMMARY PT A&OX4, PLEASANT AND COOPERATIVE WITH CARE. PT AMBULATED TO THE BATHROOM WITH FWW AND SBA. 50% WEIGHT BEARING ON LEFT FOOT R/T SURGERY PT HAD YESTERDAY. MEDICATED FOR PAIN PER EMAR. SURGICAL WOUND CLEANED AND REWRAPPED, ALONG WITH THE WOUND ON PT RIGHT FOOT. CALL LIGHT WITHIN REACH OF PT. PT USES CALL LIGHT APPROPRIATELY.
[2025-04-15 19:43] VITALS: BP 149/77
[2025-04-16] VITALS (25 sets, daily range): BP systolic 121–206; BP diastolic 61–110
--- NOTE | 2025-04-16 03:11 | NUR ---
CONSULT FROM DR POWELL RE PT LEFT FOOT INFECTION/LEFT PAD CONCERN FAXED TO DR WANG.
--- NOTE | 2025-04-16 04:13 | NUR ---
MEDICAL ADMINISTRATIVE ASSISTANT SUMMARY BP ELEVATED AND HR BRADYCARDIC, (SEE VS SHEET). ALERT AND ORIENTED. DRESSING OF FOOT CDI. FEELING IN BOTH FEET, BUT DIMINISHED. FEET ELEVATED ON PILLOW FOR COMFORT. REQUESTING AND TAKING ANALESICS ABOUT EVERY 3 HRS, VOICED HX OF TAKING ALOT OF PAIN MEDS FOR QUITE A LONG TIME. REMAINS ON MED TELE - SB WITH HX OF AFIB. HAS BEEN RESTING QUIETLY AT INTERVALS BETWEEN PAIN MEDS. RESPS EVEN. WAS AWAKENED BY STAFF WHEN HR DROPPED IN TO THE 30'S. WAS ASYMPTOMATIC AND VOICED FELT OK. OTHERWISE NO NOTED DISTRESS. CALL LIGHT IN REACH, RAILS UP X 2 AND BED IN LOW POSITION FOR SAFETY.
[2025-04-16 06:58] LABS: BASOPHILS ABSOLUTE AUTO 0.04 K/mm3 (0.00-0.23); BASOPHILS PERCENT AUTO 1 % (0-2); EOSINOPHILS ABSOLUTE AUTO 0.16 K/mm3 (0.00-0.68); EOSINOPHILS PERCENT AUTO 3 % (0-6); Hematocrit 35.4 % (37.0-53.0); Hemoglobin 12.0 g/dL (13.5-17.5); IMMATURE GRAN ABSOLUTE AUTO 0.04 K/mm3 (0.00-0.10); IMMATURE GRAN PERCENT AUTO 1 % (0-1); LYMPHOCYTES ABSOLUTE AUTO 1.59 K/mm3 (0.84-5.20); LYMPHOCYTES PERCENT AUTO 25 % (21-46); MONOCYTES ABSOLUTE AUTO 0.63 K/mm3 (0.16-1.47); MONOCYTES PERCENT AUTO 10 % (4-13); Mean Corpuscular HGB Conc 33.9 g/dL (31.5-36.5); Mean Corpuscular Volume 93 fL (80-100); NEUTROPHILS ABSOLUTE AUTO 3.84 K/mm3 (1.96-9.15); NEUTROPHILS PERCENT AUTO 61 % (41-73); NRBC ABSOLUTE 0.00 K/mm3 (0.00-0.02); NRBC Auto 0.0 /100 WBC (0.0-0.2); Platelet Count 233 K/mm3 (150-400); RDW Coefficient Variation 12.2 % (11.7-14.2); RDW Standard Deviation 42.1 fL (35.1-46.3)
[2025-04-16 07:15] LABS: Anion Gap 7.0 mmol/L (3-11); Blood Urea Nitrogen 8.0 mg/dL (8-24); C-REACTIVE PROTEIN, EXT RANGE 6.36 mg/dL (0.000-0.300); CO2, Blood 28.0 mmol/L (21-32); Calcium, Blood 8.7 mg/dL (8.5-10.1); Chloride, Blood 103.0 mmol/L (98-108); Creatinine, Blood 0.67 mg/dL (0.60-1.20); Glucose, Blood 105.0 mg/dL (70-99); Potassium, Blood 3.9 mmol/L (3.5-5.5); Sodium, Blood 134.0 mmol/L (136-145)
--- NOTE | 2025-04-16 17:00 | NUR ---
SHIFT SUMMARY PT IS A/OX4. SBA WITH FWW. 50% WEIGHT BEARING TO LLE. USING URINAL AT BEDSIDE. DRESSING TO LEFT FOOT CHANGED BY PHYSICAN THIS MORNING. ON TELE RUNNING SINUS MARLENE IN THE LOW-30'S TO 40'S. PT IS ASYMPTOMATIC, PHYSICAN AWARE. RECIEVING DILAUDID AND OXYCODONE PER MAR. PT IS PLEASANT AND COOPERATIVE WITH CARE. NPO AT THIS TIME, AWAITING REVASC.
[2025-04-16] MEDS ORDERED: Nitroglycerin 2 MG/20 ML BTL ONE (17:05)
[2025-04-16] MEDS ORDERED: NS 250 ML IV ONE (17:05)
[2025-04-16] MEDS ORDERED: Heparin Sodium 1000 Units/ML 10ML MDV ONE ×2 (17:05→17:45)
[2025-04-16] MEDS ORDERED: NS 1,000 ML IV ONE ×2 (17:06→17:40)
--- NOTE | 2025-04-16 17:30 | NUR ---
PT TAKEN TO [employer] OFFICER.
[2025-04-16] MEDS ORDERED: Midazolam HCl 1MG / ML 2ML Vial ONE ×2 (17:40→17:59)
[2025-04-16] MEDS ORDERED: FentaNYL Citrate 50 MCG/ML 2 ML Injection ONE ×2 (17:40→17:59)
--- NOTE | 2025-04-16 18:00 | NUR ---
REPORT RECIEVED FROM MED FLOOR RN AT [id number]. PT DOWN TO ACCESS SERVICES LIBRARIAN AT ROUGHLY 1730.
[2025-04-16] MEDS ORDERED: HydrALAZINE HCl 20 MG / ML 1ML Vial ONE (18:02)
[2025-04-16] MEDS ORDERED: NS 100 ML IV ONE (18:11)
[2025-04-16] MEDS ORDERED: NS 500 ML IV ONE (18:44)
--- NOTE | 2025-04-16 19:10 | NUR ---
ARRIVAL TO UNIT PT ARRIVED TO UNIT VIA BED FROM FIELD CANE SCALER HELPER. MIN BEDSIDE REPORT FROM FIELD CANE SCALER HELPER RNs AT BEDSIDE. A&0 x4. ARTERIAL LINE TO R GROIN C/D/I. PT EDUCATED NOT TO INTERACT c ARTERIAL LINE. HR MARLENE 40-50s, HTN 170-180s. O2 SAT >95% ON RA. PT REPORTS "DIGITAL BPs ARE NOT ACCURATE ON ME." PT REQUESTS MANUAL BP, RESULTS CONSISTENT c DIGITAL BP & ARTERIAL BP. NITRO DRIP INFUSING @ 10MCG/MIN. PT REPORTS 9/10 PAIN TO BACK & L FOOT. PT REQUESTS TO SIT UP, PT EDUCATED ON APPROPRAITE POSITIONING. PT @ BEDSIDE, TEARFUL. CALL LIGHT IN REACH.
[2025-04-16] MEDS ORDERED: Saline Nasal Spray 45 ML PRN (19:50)
[2025-04-16] MEDS ORDERED: HydrALAZINE HCl 20 MG / ML 1ML Vial IV PRN (21:20)
--- NOTE | 2025-04-16 21:40 | NUR ---
DR FUENTES TO BEDSIDE MD TO BEDSIDE TO ASSESS PT S/P TAR AND AMMONIA PUMP OPERATOR. PT IRRITABLE. EDUCATION PROVIDED ON PROCEDURE, INTERVENTIONS, NEED FOR ARTERIAL LINE CONTINUATION. MD GOAL TO TITRATE NITRO OVERNIGHT FOR POSSIBLE D/C IN AM FOR SBP <180. PT REPORTS CLAUSTERPHOBIA R/T NASAL CONGESTION, ADDITIONAL NASAL SPRAY ORDERED. MD REFUSE PT TO TAKE OWN HOME AFRIN NASAL SPRAY. PRN MED ORDER OBTAINED FOR ANXIETY.
[2025-04-17] VITALS (26 sets, daily range): BP systolic 123–185; BP diastolic 52–89
[2025-04-17 03:32] LABS: BASOPHILS ABSOLUTE AUTO 0.06 K/mm3 (0.00-0.23); BASOPHILS PERCENT AUTO 1 % (0-2); EOSINOPHILS ABSOLUTE AUTO 0.00 K/mm3 (0.00-0.68); EOSINOPHILS PERCENT AUTO 0 % (0-6); Hematocrit 36.0 % (37.0-53.0); Hemoglobin 12.3 g/dL (13.5-17.5); IMMATURE GRAN ABSOLUTE AUTO 0.06 K/mm3 (0.00-0.10); IMMATURE GRAN PERCENT AUTO 1 % (0-1); LYMPHOCYTES ABSOLUTE AUTO 1.58 K/mm3 (0.84-5.20); LYMPHOCYTES PERCENT AUTO 23 % (21-46); MONOCYTES ABSOLUTE AUTO 0.77 K/mm3 (0.16-1.47); MONOCYTES PERCENT AUTO 11 % (4-13); Mean Corpuscular HGB Conc 34.2 g/dL (31.5-36.5); Mean Corpuscular Volume 92 fL (80-100); NEUTROPHILS ABSOLUTE AUTO 4.52 K/mm3 (1.96-9.15); NEUTROPHILS PERCENT AUTO 65 % (41-73); NRBC ABSOLUTE 0.00 K/mm3 (0.00-0.02); NRBC Auto 0.0 /100 WBC (0.0-0.2); Platelet Count 258 K/mm3 (150-400); RDW Coefficient Variation 12.4 % (11.7-14.2); RDW Standard Deviation 41.8 fL (35.1-46.3)
[2025-04-17 04:01] LABS: Anion Gap 8.0 mmol/L (3-11); Blood Urea Nitrogen 11.0 mg/dL (8-24); C-REACTIVE PROTEIN, EXT RANGE 3.49 mg/dL (0.000-0.300); CO2, Blood 26.0 mmol/L (21-32); Calcium, Blood 8.9 mg/dL (8.5-10.1); Chloride, Blood 104.0 mmol/L (98-108); Creatinine, Blood 0.69 mg/dL (0.60-1.20); Glucose, Blood 119.0 mg/dL (70-99); Potassium, Blood 3.8 mmol/L (3.5-5.5); Sodium, Blood 134.0 mmol/L (136-145)
--- NOTE | 2025-04-17 06:25 | NUR ---
SHIFT SUMMARY POD 3 L FOOT I&D. POD 1 L PERCUTANEOUS TRANSLUMINAL ANGIOPLASTY (SEMI DRIVER) RECANALIZATION c R GROIN SHEATH/ARTERIAL LINE PLACEMENT. A&O x4. PT VERY IRRITABLE & ARGUMENTATIVE. PT NONCOMPLIANT c POSITIONAL RESTRICTIONS R/T ART LINE. PT FREQUENTLY ATTEMPTS TO SIT UP/BEND AT THE HIP/BEND RLE/LAY ON R SIDE DESPITE EDUCATION & REDIRECTION. PT REPORTS INCREASED PAIN TO R CHRIS/BACK/LLE R/T LIMITED POSITIONING. PT FREQUENTLY REQUESTS ART LINE TO BE REMOVED. HR MARLENE 40-50s, WHEN HR DROP TO HIGH 30s, PT ASYMPTOMATIC. MAP >65, GOAL SBP <180. NITRO GTT PAUSED AT 0100, PRN HYDRALIZAINE GIVEN ONCE THIS SHIFT TO MAINTAIN GOAL BP. SPO2 >95% ON RA, FREQUENT PAUSED RESPIRATIONS R/T JESUS c NONCOMPLIANT CPAP. DRESSING TO RLE C/D/I. DRESSING TO LLE c MOD DRIED SANG DRAINAGE, RENA WRAP OTHERWISE C/D/I. PT MEDICATED FOR PAIN PER EMAR. BASELINE AMB 50% WB TO LLE c FWW. LLE ELEVATED ON PILLOWS. VOIDING. PASSING FLATUS, NO BM. PT RESTING IN BED, CALL LIGHT IN REACH, WILL REPORT TO DAY RN.
--- NOTE | 2025-04-17 07:20 | NUR ---
DR WANG/SHEATH PULL PT VERBALIZED EXTREME DISCOMFORT WITH RIGHT FEMORAL ARTERIAL SHEATH IN PLACE DESPITE MEDICATIONS PER EMAR AND REPOSITIONING. DR WANG CALLED AND UPDATED. ORDERS RECIEVED TO DC GROIN SHEATH AT THIS TIME. PT MED PER EMAR, AND SHEATH PULLED. MANUAL PRESSURE HELD FOR 20 MINS. SITE C/D/I.
[2025-04-17] MEDS ORDERED: Fluticasone 0.05% Nasal Spray SCH (09:00)
[2025-04-17] MEDS ORDERED: NORVASC5 MG PO (13:22)
[2025-04-17] MEDS ORDERED: CLIN300 PO (13:23)
[2025-04-17] MEDS ORDERED: LACT PO (13:23)
--- NOTE | 2025-04-17 14:28 | NUR ---
DISCHARGE PT AND SPOUSE VERBALIZED UNDERSTANDING OF ALL DISCHARGE INSTRUCTIONS AND MEDICATIONS. PT SIGNED DISCHARGE PAPERWORK. IV'S DC'D. PT DRESSED SELF. PT TAKEN TO VEHICLE VIA WHEELCHAIR AT 1425. ALL PT BELONGINGS AND NEW CRUTCHES SENT HOME WITH PT.
== END 2025-04-17 14:15 | disposition home or self-care (01) | DRG 853 ==
LOC: ER 15:06 → ERHOLD 18:48 → MEDS 18:48 → PCU 04-16 17:58 → ICUE 04-16 19:08
PROVIDERS: Hospitalist; Nurse Practitioner Acute Care; Physician Assistant; Podiatrist; ADMIT Student in an Organized Health Care Education/Training Program
PROC: 3E03329 Introduction of Other Anti-infective into Peripheral Vein, Percutaneous Approach (ICD-10-PCS; 2025-04-12)
PROC: 0Y9N0ZZ Drainage of Left Foot, Open Approach (ICD-10-PCS; 2025-04-14)
PROC: 0Y6U0Z1 Detachment at Left 3rd Toe, High, Open Approach (ICD-10-PCS; principal; 2025-04-14 12:00)
PROC: 047S3ZZ Dilation of Left Posterior Tibial Artery, Percutaneous Approach (ICD-10-PCS; 2025-04-16)
DX: A41.9 Sepsis, unspecified organism (principal); G93.41 Metabolic encephalopathy; E87.1 Hypo-osmolality and hyponatremia; F11.20 Opioid dependence, uncomplicated; L03.116 Cellulitis of left lower limb; M86.8X7 Other osteomyelitis, ankle and foot; M10.9 Gout, unspecified; E03.9 Hypothyroidism, unspecified; E78.5 Hyperlipidemia, unspecified; F32.A Depression, unspecified; N18.9 Chronic kidney disease, unspecified; D64.9 Anemia, unspecified; G47.30 Sleep apnea, unspecified; E66.01 Morbid (severe) obesity due to excess calories; G47.33 Obstructive sleep apnea (adult) (pediatric); I48.0 Paroxysmal atrial fibrillation; L97.512 Non-pressure chronic ulcer of other part of right foot with fat layer exposed; G60.3 Idiopathic progressive neuropathy; I73.9 Peripheral vascular disease, unspecified; K21.9 Gastro-esophageal reflux disease without esophagitis; F41.9 Anxiety disorder, unspecified; R00.1 Bradycardia, unspecified; G89.4 Chronic pain syndrome; L97.524 Non-pressure chronic ulcer of other part of left foot with necrosis of bone; T36.8X5A Adverse effect of other systemic antibiotics, initial encounter; I77.1 Stricture of artery; Z96.662 Presence of left artificial ankle joint; Z96.661 Presence of right artificial ankle joint; Z96.653 Presence of artificial knee joint, bilateral; Z96.612 Presence of left artificial shoulder joint; Z96.611 Presence of right artificial shoulder joint; Z79.01 Long term (current) use of anticoagulants; Z79.82 Long term (current) use of aspirin; Z79.890 Hormone replacement therapy; Z79.899 Other long term (current) drug therapy; Z88.8 Allergy status to other drugs, medicaments and biological substances
CPT/HCPCS: 36415; 71045; 73630; 76937; 80048; 80053; 82947; 83605; 83735; 84100; 85025; 85651; 86140; 87040; 87070; 87071; 87075; 87077; 87147; 87185; 87186; 87205; 87637; 88305; 88311; 93005; 93010; 93926; 94760; 96361; 96365; 96367; 96372; 96375; 96376; 99152; 99153; 99285-25; A9270; C1725; C1769; C1887; C1894; G0378; J0360; J0696; J1171; J1644; J1650; J1885; J2250; J2704; J3010; J7030; J7040; J7050; J7120; Q9967

== ENCOUNTER → 2025-06-10 | Outpatient (CLI) | payer MEDICARE, OTHER ==
[~2025-06-10] MED LIST changes: +CLIN300 PO; +EUTHYROX125 MCG PO; +KINERET100 MG/0.6 SC; +LACT PO; +NORVASC5 MG PO
== END ==
LOC: LAB SHORT 10:20 → LAB 10:20
DX: L03.116 Cellulitis of left lower limb (principal); L02.612 Cutaneous abscess of left foot
CPT/HCPCS: 87070; 87077; 87186; 87205